=== PATIENT | male | born 1965 | race Caucasian/White ===

== ENCOUNTER 2018-04-13 09:46 | Emergency (ER) | END 2018-04-13 12:38 | disposition home or self-care (01) ==

== ENCOUNTER 2018-06-07 11:24 | Emergency (ER) | END 2018-06-07 16:59 | disposition home or self-care (01) ==

== ENCOUNTER 2018-08-29 00:07 | Inpatient (IN) | END 2018-09-02 15:15 | disposition home or self-care (01) | DRG 872 ==